=== PATIENT | female | born 1965 | race Caucasian/White ===

== ENCOUNTER 2017-03-21 00:07 | Emergency (ER) | payer BC ==
[~2017-03-21] VITALS: Ht 167.6 cm; Wt 61.2 kg
--- NOTE | 2017-03-21 00:36 | NUR ---
Pt ate the inner parts of 2 peach pits and 2 plum pits, states she developed ECKERT, nausea and vomited x 4 [employer]. Pt denies dizziness, CP, SOB, no other complaints, no distress noted.
--- NOTE | 2017-03-21 01:30 | NUR ---
Pt states she is pain free and has no more nausea.
--- NOTE | 2017-03-21 01:43 | NUR ---
IV removed. Catheter intact and site benign. Pressure and 4x4 applied to site. No bleeding noted. dPatient discharged to home in stable condition. Written and verbal after care instructions given. Patient verbalizes understanding of instruction. Patient is ambualatory with steady gait, Instructed not to drive. Accompanied by family. No further complaints.
[2017-03-21 01:44] VITALS: BP 134/69
== END 2017-03-21 01:44 | disposition home or self-care (01) ==
LOC: ER 00:14
DX: G44.209 Tension-type headache, unspecified, not intractable (principal); Z88.2 Allergy status to sulfonamides
CPT/HCPCS: 96361; 96374; 96375; 99284; A4606; J1170; J2405; J7030; Z7610